=== PATIENT | male | born 1965 | race Caucasian/White ===

== ENCOUNTER 2022-06-21 11:08 | Inpatient (IN) | payer BC ==
[~2022-06-21] VITALS: Ht 185.4 cm; Wt 75.0 kg
[2022-06-21 17:54] LABS: BASOPHILS # (AUTO) 0.1 X10'3 (0-0.2); BASOPHILS % (AUTO) 0.8 % (0-1); EOSINOPHILS # (AUTO) 0.1 X10'3 (0-0.9); EOSINOPHILS % (AUTO) 0.6 % (0-6); HEMATOCRIT 44.4 % (42.0-52.0); HEMOGLOBIN 15.7 g/dl (14.0-17.9); LYMPHOCYTES # (AUTO) 0.6 X10'3 (1.1-4.8); LYMPHOCYTES % (AUTO) 6.9 % (21-51); MEAN CORPUSCULAR HEMOGLOBIN 34.1 PG (27.0-31.0); MEAN CORPUSCULAR HGB CONC 35.2 g/dL (33.0-36.5); MEAN CORPUSCULAR VOLUME 96.8 FL (78-98); MEAN PLATELET VOLUME 7.6 FL (7.4-10.4); MONOCYTES # (AUTO) 0.7 X10'3 (0-0.9); MONOCYTES % (AUTO) 8.6 % (2-12); NEUTROPHILS % (AUTO) 83.1 % (42-75); PLATELET COUNT 249 X10'3 (140-440); RED BLOOD COUNT 4.59 X10'6 (4.70-6.10); RED CELL DISTRIBUTION WIDTH 13.3 % (11.5-14.5); WHITE BLOOD COUNT 8.4 X10'3 (4.5-11.0)
[2022-06-21] MEDS ORDERED: iohexol 300mg/ml 100ml inj. ONE (17:57)
[2022-06-21 18:04] LABS: GLUCOSE 114 MG/DL (70-104); SODIUM 134 MMOL/L (135-145)
[2022-06-21 18:05] LABS: ALANINE AMINOTRANSFERASE 18 U/L (12-78); ALBUMIN 3.2 G/DL (3.4-5.0); ALBUMIN/GLOBULIN RATIO 0.9 (1.1-1.5); ALKALINE PHOSPHATASE 100 IU/L (46-116); ANION GAP 9 (8-16); ASPARTATE AMINO TRANSFERASE 21 U/L (10-37); BLOOD UREA NITROGEN 7 MG/DL (7-18); BUN/CREATININE RATIO 10.9 (5.4-32.0); CALCIUM 8.9 MG/DL (8.5-10.1); CHLORIDE 98 MMOL/L (99-107); CREATININE 0.64 MG/DL (0.60-1.10); POTASSIUM 3.8 MMOL/L (3.5-5.1); TOTAL CARBON DIOXIDE 27.3 MMOL/L (24-32); TOTAL PROTEIN 6.6 G/DL (6.4-8.2); eGFR > 90 ML/MIN
--- NOTE | 2022-06-21 19:23 | NUR ---
Patient given urinal and informed on need for UA.
[2022-06-21] MEDS ORDERED: vancomycin/NS 1 GM ADD-VANTAGE 250 ML IV ONE (19:50)
[2022-06-21] MEDS ORDERED: LIDOcaine 1% W/epiNEPHrine 1:100,000 20ml vial SQ ONE (20:15)
[2022-06-21] MEDS ORDERED: NO HOME MEDS (20:16)
[2022-06-21] MEDS ORDERED: LIDOCAINE 2% (20mg/ml) w/EPINEPHRINE 1:200,000-PF 10 ML inj. SQ ONE (20:30)
[2022-06-21] MEDS ORDERED: LIDOCAINE 2%/EPI 1:100,000 inj. Multi-dose 20 ML VIAL SQ ONE ×2 (20:35→20:45)
[2022-06-21] MEDS ORDERED: potassium Cl 40MEQ/1/2NS 520ml 520 ML IV PRN (20:40)
[2022-06-21] MEDS ORDERED: potassium Cl 20 mEq SR tablet PO PRN ×2 (20:40)
[2022-06-21] MEDS: normal saline 1000ml 1,000 ML IV SCH (20:40)
[2022-06-21] MEDS ORDERED: magnesium 4gm in 100ml NS 100 ML IV PRN (20:40)
[2022-06-21] MEDS ORDERED: acetaminophen 325mg tablet PO PRN (20:40)
[2022-06-21] MEDS ORDERED: magnesium hydroxide 30ml (MOM) UD suspension PO PRN (20:40)
[2022-06-21] MEDS ORDERED: mag hydrox/Alum hydrox/simeth 30ml oral suspension PO PRN (20:40)
[2022-06-21] MEDS ORDERED: magnesium Cl slow-release 64mg tablet PO PRN (20:40)
[2022-06-21] MEDS ORDERED: ondansetron/PF 4mg/2ml inj IV PRN (20:40)
[2022-06-21 21:26] LABS: CLARITY,URINE CLEAR (Clear); COLOR,URINE YELLOW (Yellow); GLUCOSE, URINE NEGATIVE (Neg); KETONES,URINE 15 mg/dl (Neg); LEUKOCYTE ESTERASE ,URINE NEGATIVE (Neg); NITRITES, URINE NEGATIVE (Neg); OCCULT BLOOD,URINE NEGATIVE (Neg); PROTEIN,URINE NEGATIVE (Neg)
[2022-06-21 21:30] LABS: UA COLLECTION TYPE CLN CATCH MIDSTREAM
--- NOTE | 2022-06-21 22:14 | NUR ---
Bedside procedure completed by SOBEIDA Barry. Packing in place.
[2022-06-22] VITALS (17 sets, daily range): BP systolic 102–146; BP diastolic 60–86
[2022-06-22] MEDS: piperacillin/tazo 3.375gm/50ml 50 ML IV SCH ×3 (01:18→15:47)
[2022-06-22] MEDS: clindamycin 300mg/D5W 50mL 50 ML IV SCH ×4 (03:10→20:31)
[2022-06-22 03:36] LABS: BASOPHILS # (AUTO) 0.1 X10'3 (0-0.2); BASOPHILS % (AUTO) 0.6 % (0-1); EOSINOPHILS # (AUTO) 0.1 X10'3 (0-0.9); EOSINOPHILS % (AUTO) 0.6 % (0-6); HEMATOCRIT 41.8 % (42.0-52.0); HEMOGLOBIN 14.4 g/dl (14.0-17.9); LYMPHOCYTES # (AUTO) 0.7 X10'3 (1.1-4.8); LYMPHOCYTES % (AUTO) 8.4 % (21-51); MEAN CORPUSCULAR HEMOGLOBIN 33.6 PG (27.0-31.0); MEAN CORPUSCULAR HGB CONC 34.5 g/dL (33.0-36.5); MEAN CORPUSCULAR VOLUME 97.4 FL (78-98); MONOCYTES % (AUTO) 11.2 % (2-12); NEUTROPHILS % (AUTO) 79.2 % (42-75); PLATELET COUNT 223 X10'3 (140-440); RED BLOOD COUNT 4.29 X10'6 (4.70-6.10); RED CELL DISTRIBUTION WIDTH 12.9 % (11.5-14.5); WHITE BLOOD COUNT 8.8 X10'3 (4.5-11.0)
[2022-06-22 03:50] LABS: ALANINE AMINOTRANSFERASE 17 U/L (12-78); ALBUMIN 2.7 G/DL (3.4-5.0); ALBUMIN/GLOBULIN RATIO 0.9 (1.1-1.5); ALKALINE PHOSPHATASE 87 IU/L (46-116); ANION GAP 5 (8-16); ASPARTATE AMINO TRANSFERASE 14 U/L (10-37); BILIRUBIN,TOTAL 1.6 MG/DL (0.1-1.0); BLOOD UREA NITROGEN 7 MG/DL (7-18); BUN/CREATININE RATIO 10.4 (5.4-32.0); CALCIUM 8.4 MG/DL (8.5-10.1); CHLORIDE 100 MMOL/L (99-107); CREATININE 0.67 MG/DL (0.60-1.10); GLUCOSE 125 MG/DL (70-104); MAGNESIUM 1.6 MG/DL (1.5-2.4); POTASSIUM 3.6 MMOL/L (3.5-5.1); SODIUM 133 MMOL/L (135-145); TOTAL CARBON DIOXIDE 28.3 MMOL/L (24-32); TOTAL PROTEIN 5.7 G/DL (6.4-8.2); eGFR > 90 ML/MIN
[2022-06-22] MEDS: normal saline 1000ml 1,000 ML IV SCH (06:40)
--- NOTE | 2022-06-22 07:13 | NUR ---
Received report from Savannah. Let her know that room is dirty and not ready for patient to be brought up. Let her know that a bottomer operator was seen in room and this RN will call to let her know when room is cleaned.
[2022-06-22] MEDS: docusate sod 100mg capsule PO SCH ×2 (07:22→20:21)
[2022-06-22] MEDS: heparin, porcine 5000 units/ml vial SQ SCH ×2 (07:23→20:21)
[2022-06-22] MEDS: HYDROcodone/acetaminophen 10/325mg tab PO PRN (07:23)
[2022-06-22] MEDS: K and/or MAG REPLACEMENT MC SCH ×2 (08:00→20:00)
--- NOTE | 2022-06-22 08:03 | NUR ---
Received patient to room 355B via gurmaxim accompanied by KNITTING MACHINE OPERATOR, Savannah. Spouse at bedside. Patient alert and oriented in no apparent acute distress. Patient denies any pain at this time. Oriented patient to room and call light. Call light placed within patient's reach. Bed low and locked.
[2022-06-22] MEDS ORDERED: ringers solution, lacted 1,000 ML IV SCH (12:30)
[2022-06-22] MEDS ORDERED: ondansetron/PF 4mg/2ml inj IV PRN (12:30)
[2022-06-22] MEDS ORDERED: proCHLORperazine 10 MG/2 ml inj IV PRN (12:30)
[2022-06-22] MEDS ORDERED: meperidine/PF 25mg/ml syringe IV PRN ×3 (12:30)
[2022-06-22] MEDS ORDERED: morphine 2 MG/ML inj. syringe IV PRN (12:30)
[2022-06-22] MEDS ORDERED: morphine 4 MG/ML inj SYRINge IV PRN (12:30)
[2022-06-22] MEDS ORDERED: midazolam 1 mg/ML 2ml injection ONE (12:33)
[2022-06-22] MEDS ORDERED: fentaNYL/PF 50MCG/1 ML 2ML syringe ONE (12:33)
[2022-06-22] MEDS ORDERED: propofol inj 20 ML IV ONE (12:35)
[2022-06-22] MEDS ORDERED: LIDOcaine 2% (20mg/ml) 5ml vial ONE (12:35)
--- NOTE | 2022-06-22 12:39 | NUR ---
Patient down to OR. Dr. Mccormick is aware patient received heparin SQ this morning in ER.
[2022-06-22] MEDS ORDERED: BUPIVAcaine 0.25% w/Epi /PF 30ml vial ONE (12:42)
[2022-06-22 12:43] LABS: APTT 33 SECONDS (22-32)
[2022-06-22] MEDS ORDERED: LIDOCAINE 2% w/EPI 1:100:000 30mL injection MDV**cath lab 1 only ONE (12:43)
[2022-06-22] MEDS ORDERED: dibucaine ointment 28gm RC ONE (12:44)
[2022-06-22] MEDS ORDERED: sevoflurane 250ml liquid IH ONE (13:11)
[2022-06-22] MEDS ORDERED: ketamine 50mg/5ml syringe ONE (13:23)
[2022-06-22] MEDS ORDERED: ondansetron/PF 4mg/2ml inj ONE (13:24)
[2022-06-22] MEDS ORDERED: dexamethasone sod phosphate 4mg/ml inj. ONE (13:24)
[2022-06-22] MEDS ORDERED: LIDOcaine 1% W/epiNEPHrine 1:100,000 20ml vial IJ ONE (13:35)
[2022-06-22] MEDS ORDERED: ePHEDrine 50MG/ML INJ. ONE (13:40)
--- NOTE | 2022-06-22 14:30 | NUR ---
PATIENT A&OX4, DENIES PAIN, V/S WNL, CSM INTACT, 20G PIV, JENNIFER DRAIN AND ABD PADS TO RECTAL AREA WITH NO ACTIVE DRAINAGE SEEN PATIENT TAKEN TO 355B WITH ALL BELONGINGS AND HOOKED UP TO MONITORS IN ROOM AND REPORT GIVEN TO RN WHO HAS TAKEN OVER PATIENT CARE.
--- NOTE | 2022-06-22 14:34 | NUR ---
Patient returned to room 355B alert and oriented and denies pain. Post op vitals initiated VSS.
--- NOTE | 2022-06-22 14:36 | NUR ---
PAGER ID: [phone] MESSAGE: 355B- Nino Morel- back from OR. ok to order a diet? - Mary Anne De Leon1
--- NOTE | 2022-06-22 14:42 | NUR ---
Dressing to buttocks with mesh undewear CDI.
--- NOTE | 2022-06-22 15:09 | NUR ---
PAGER ID: [phone] MESSAGE: 355B- Nino Morel- meredith to start a diet? return from OR I&D. thank you - Mary Anne [id number]
--- NOTE | 2022-06-22 19:03 | NUR ---
Patient in room NADIRA 355. I have received report from SUNIL North and had the opportunity to ask questions and assume patient care.
[2022-06-23] MEDS: clindamycin 300mg/D5W 50mL 50 ML IV SCH ×3 (02:37→13:06)
--- NOTE | 2022-06-23 06:44 | NUR ---
Problems reprioritized. Patient report given, questions answered & plan of care reviewed with SUNIL North.
--- NOTE | 2022-06-23 06:51 | NUR ---
Patient in room NADIRA 355. I have received report from SUNIL Muller and had the opportunity to ask questions and assume patient care.
[2022-06-23 06:57] LABS: ALANINE AMINOTRANSFERASE 15 U/L (12-78); ALBUMIN 2.3 G/DL (3.4-5.0); ALBUMIN/GLOBULIN RATIO 0.9 (1.1-1.5); ALKALINE PHOSPHATASE 73 IU/L (46-116); ANION GAP 6 (8-16); ASPARTATE AMINO TRANSFERASE 12 U/L (10-37); BILIRUBIN,TOTAL 0.5 MG/DL (0.1-1.0); BLOOD UREA NITROGEN 7 MG/DL (7-18); BUN/CREATININE RATIO 11.7 (5.4-32.0); CHLORIDE 99 MMOL/L (99-107); GLUCOSE 134 MG/DL (70-104); MAGNESIUM 1.6 MG/DL (1.5-2.4); POTASSIUM 3.9 MMOL/L (3.5-5.1); SODIUM 130 MMOL/L (135-145); TOTAL CARBON DIOXIDE 25.5 MMOL/L (24-32); eGFR > 90 ML/MIN
[2022-06-23 07:06] VITALS: BP 122/78
[2022-06-23 07:06] LABS: BASOPHILS % (AUTO) 0.4 % (0-1); EOSINOPHILS % (AUTO) 0.7 % (0-6); HEMATOCRIT 38.7 % (42.0-52.0); HEMOGLOBIN 13.2 g/dl (14.0-17.9); LYMPHOCYTES # (AUTO) 0.9 X10'3 (1.1-4.8); LYMPHOCYTES % (AUTO) 13.1 % (21-51); MEAN CORPUSCULAR HEMOGLOBIN 33.6 PG (27.0-31.0); MEAN PLATELET VOLUME 8.6 FL (7.4-10.4); MONOCYTES # (AUTO) 0.5 X10'3 (0-0.9); MONOCYTES % (AUTO) 7.3 % (2-12); NEUTROPHILS # (AUTO) 5.6 X10'3 (1.8-7.7); NEUTROPHILS % (AUTO) 78.5 % (42-75); PLATELET COUNT 214 X10'3 (140-440); RED BLOOD COUNT 3.91 X10'6 (4.70-6.10); RED CELL DISTRIBUTION WIDTH 13.2 % (11.5-14.5); WHITE BLOOD COUNT 7.1 X10'3 (4.5-11.0)
[2022-06-23] MEDS: HYDROcodone/acetaminophen 10/325mg tab PO PRN (07:13)
[2022-06-23] MEDS: docusate sod 100mg capsule PO SCH (07:13)
[2022-06-23] MEDS: heparin, porcine 5000 units/ml vial SQ SCH (07:14)
[2022-06-23] MEDS: normal saline 1000ml 1,000 ML IV SCH ×3 (07:19→12:40)
[2022-06-23] MEDS: K and/or MAG REPLACEMENT MC SCH (08:00)
[2022-06-23] MEDS: piperacillin/tazo 3.375gm/50ml 50 ML IV SCH ×3 (08:34→16:00)
[2022-06-23 12:14] VITALS: BP 99/60
[2022-06-23] MEDS ORDERED: CLIN-97 PO (17:10)
--- NOTE | 2022-06-23 17:22 | NUR ---
PAGER ID: [phone] MESSAGE: 355B- Nino Morel- pt requesting pain meds for dc. Patient received [place] 10/325mg 1 tab q4prn pain . - Mary Anne [id number]
[2022-06-23] MEDS ORDERED: HYDR-3965 PO (17:25)
--- NOTE | 2022-06-23 17:57 | NUR ---
Patient dc instructions and meds discussed by resource RN Obey. Went to speak to patient and asked if he had any questions and patient verbalized understanding of dc. Patient spoouse at bedside. Patient dc'd with all personal belongings escorted out in wheel chair accompanied by x1 staff and PCT.
== END 2022-06-23 17:52 | disposition home or self-care (01) | DRG 571 ==
LOC: ER 11:09 → ED HOLD 20:42 → EDBEDREQ 06-22 04:59 → SUR 3N 06-22 07:46
PROVIDERS: ADMIT Internal Medicine; ATTEND Internal Medicine
PROC: 0W9M0ZZ Drainage of Male Perineum, Open Approach (ICD-10-PCS; 2022-06-21)
PROC: 0JBB0ZZ Excision of Perineum Subcutaneous Tissue and Fascia, Open Approach (ICD-10-PCS; principal; 2022-06-22 13:11)
DX: L02.215 Cutaneous abscess of perineum (principal); K86.0 Alcohol-induced chronic pancreatitis; L03.317 Cellulitis of buttock; N49.2 Inflammatory disorders of scrotum
CPT/HCPCS: 99285; Z7506; 36415; 72193; 80053; 81003; 82948; 83605; 83735; 84145; 85025; 85610; 85730; 87040; 93005; A4618; A6209; A6253; A6266; A6449; A7000; G0378; J1100; J1644; J2250; J2405; J2543; J2704; J3010; J3370; J3490; J7030; J7120; Q9967; S0020

== ENCOUNTER 2023-07-12 14:09 | Inpatient (IN) | payer BC ==
[~2023-07-12] VITALS: Ht 182.9 cm; Wt 74.9 kg
[~2023-07-12 14:09] MED LIST: CLIN-97 PO; NO HOME MEDS
[2023-07-12 14:38] LABS: BILIRUBIN,URINE LARGE (Neg); CLARITY,URINE CLEAR (Clear); COLOR,URINE AMBER (Yellow); GLUCOSE, URINE 100 mg/dl (Neg); KETONES,URINE 15 mg/dl (Neg); LEUKOCYTE ESTERASE ,URINE NEGATIVE (Neg); OCCULT BLOOD,URINE NEGATIVE (Neg); PH,URINE 6.5 (4.8-8.0); PROTEIN,URINE 30 mg/dl (Neg)
[2023-07-12 14:47] LABS: NITRITES, URINE NEGATIVE (Neg)
[2023-07-12 14:48] LABS: UA COLLECTION TYPE CLN CATCH MIDSTREAM
[2023-07-12 14:53] LABS: MUCUS STRANDS MANY /LPF (Neg); SQUAMOUS EPITHELIAL CELL,UR FEW /LPF (FEW)
[2023-07-12 14:54] LABS: AMORPHOUS URATES 1+; BACTERIA,URINE FEW /HPF (Neg); CELLULAR CAST 0-4 /LPF (NEGATIVE); COARSE GRANULAR CAST 0-3 /LPF (NEGATIVE); RBC,URINE 0-2 /HPF (0-2); TRANSITIONAL EPI CELLS,URINE FEW /HPF
[2023-07-12 14:58] LABS: BASOPHILS # (AUTO) 0.1 X10'3 (0-0.2); BASOPHILS % (AUTO) 0.9 % (0-1); EOSINOPHILS # (AUTO) 0.1 X10'3 (0-0.9); EOSINOPHILS % (AUTO) 0.8 % (0-6); HEMOGLOBIN 10.6 g/dl (14.0-17.9); LYMPHOCYTES # (AUTO) 0.7 X10'3 (1.1-4.8); LYMPHOCYTES % (AUTO) 5.4 % (21-51); MEAN CORPUSCULAR HEMOGLOBIN 31.8 PG (27.0-31.0); MEAN CORPUSCULAR HGB CONC 34.3 g/dL (33.0-36.5); MEAN CORPUSCULAR VOLUME 92.9 FL (78-98); MEAN PLATELET VOLUME 7.4 FL (7.4-10.4); MONOCYTES # (AUTO) 1.5 X10'3 (0-0.9); MONOCYTES % (AUTO) 11.2 % (2-12); NEUTROPHILS # (AUTO) 10.8 X10'3 (1.8-7.7); NEUTROPHILS % (AUTO) 81.7 % (42-75); PLATELET COUNT 544 X10'3 (140-440); RED BLOOD COUNT 3.34 X10'6 (4.70-6.10); RED CELL DISTRIBUTION WIDTH 14.3 % (11.5-14.5); WHITE BLOOD COUNT 13.2 X10'3 (4.5-11.0)
[2023-07-12 15:20] LABS: ALANINE AMINOTRANSFERASE 68 U/L (12-78); ALKALINE PHOSPHATASE 666 IU/L (46-116); ANION GAP 8 (8-16); ASPARTATE AMINO TRANSFERASE 43 U/L (10-37); BILIRUBIN,TOTAL 4.4 MG/DL (0.1-1.0); BLOOD UREA NITROGEN 7 MG/DL (7-18); BUN/CREATININE RATIO 11.3 (10.0-20.0); CALCIUM 8.3 MG/DL (8.5-10.1); CHLORIDE 93 MMOL/L (99-107); CREATININE 0.62 MG/DL (0.60-1.10); GLUCOSE 110 MG/DL (70-104); LIPASE 31 U/L (16-77); POTASSIUM 3.7 MMOL/L (3.5-5.1); SODIUM 127 MMOL/L (135-145); TOTAL CARBON DIOXIDE 25.6 MMOL/L (24-32); eCRCL 138 ML/MIN; eGFR > 90 ML/MIN
[2023-07-12 15:25] LABS: ALBUMIN/GLOBULIN RATIO 0.5 (1.1-1.5); TOTAL PROTEIN 6.2 G/DL (6.4-8.2)
[2023-07-13] MEDS: morphine 2 MG/ML inj. syringe IV STA (06:24)
[2023-07-13] MEDS: normal saline 1000ml 1,000 ML IV ONE (06:25)
[2023-07-13] MEDS: ondansetron/PF 4mg/2ml inj IV ONE (06:25)
[2023-07-13] MEDS ORDERED: iohexol 300mg/ml 100ml inj. ONE (06:59)
[2023-07-13] MEDS: CefTRIAXone/D5W-Rocephin 1gm 50 ML IV STA (07:33)
[2023-07-13 08:14] LABS: APTT 30 SECONDS (22-32); INR 1.1 INR; PROTHROMBIN TIME 11.4 SECONDS (9.0-12.0)
[2023-07-13 08:20] LABS: FREE T4 (FREE THYROXINE) 0.83 NG/DL (0.73-1.40); THYROID STIMULATING HORMONE 2.93 ulU/ml (0.34-4.50)
[2023-07-13] MEDS ORDERED: magnesium Cl slow-release 64mg tablet PO PRN (08:45)
[2023-07-13] MEDS ORDERED: HYDROcodone/acetaminophen 10/325mg tab PO PRN (08:45)
[2023-07-13] MEDS ORDERED: morphine 2 MG/ML inj. syringe IV PRN ×2 (08:45)
[2023-07-13] MEDS ORDERED: potassium Cl 40MEQ/1/2NS 520ml 520 ML IV PRN (08:45)
[2023-07-13] MEDS ORDERED: HYDROcodone/acetaminophen 5mg/325mg tablet PO PRN (08:45)
[2023-07-13] MEDS ORDERED: acetaminophen 325mg tablet PO PRN ×2 (08:45)
[2023-07-13] MEDS ORDERED: magnesium 2GM in 50ml NS 50 ML IV PRN (08:45)
[2023-07-13] MEDS ORDERED: magnesium hydroxide 30ml (MOM) UD suspension PO PRN (08:45)
[2023-07-13] MEDS ORDERED: metoclopramide 5 mg/ml inj IV PRN (08:45)
[2023-07-13] MEDS ORDERED: ondansetron/PF 4mg/2ml inj IV PRN (08:45)
[2023-07-13] MEDS ORDERED: potassium Cl 20 mEq SR tablet PO PRN ×2 (08:45)
[2023-07-13] MEDS ORDERED: magnesium 4gm in 100ml NS 100 ML IV PRN (08:45)
[2023-07-13] MEDS ORDERED: mag hydrox/Alum hydrox/simeth 30ml oral suspension PO PRN (08:45)
[2023-07-13] MEDS: normal saline 1000ml 1,000 ML IV SCH (08:50)
[2023-07-13 09:21] LABS: ACETONE NEGATIVE (NEGATIVE)
[2023-07-13] MEDS: metroNIDAZOLE-Flagyl 500mg/NS 100 ML IV STA (11:21)
[2023-07-13] MEDS ORDERED: piperacillin/tazo 4.5gm/100ml 100 ML IV SCH (16:00)
[2023-07-13] MEDS: pantoprazole 40 MG vial IV ONE (19:55)
[2023-07-13] MEDS ORDERED: K and/or MAG REPLACEMENT MC SCH (20:00)
[2023-07-13] MEDS ORDERED: docusate sod 100mg capsule PO SCH (20:00)
[2023-07-13] MEDS: piperacillin/tazo 4.5gm/100ml 100 ML IV SCH (21:04)
[2023-07-13] MEDS: metroNIDAZOLE-Flagyl 500mg/NS 100 ML IV SCH (23:47)
[2023-07-14] MEDS: morphine 4 MG/ML inj SYRINge IV ONE (05:47)
[2023-07-14] MEDS: ondansetron/PF 4mg/2ml inj IV ONE (05:48)
[2023-07-14 06:53] LABS: BASOPHILS # (AUTO) 0.1 X10'3 (0-0.2); BASOPHILS % (AUTO) 0.8 % (0-1); EOSINOPHILS # (AUTO) 0.1 X10'3 (0-0.9); EOSINOPHILS % (AUTO) 0.8 % (0-6); HEMATOCRIT 28.7 % (42.0-52.0); LYMPHOCYTES # (AUTO) 0.8 X10'3 (1.1-4.8); LYMPHOCYTES % (AUTO) 7.1 % (21-51); MEAN CORPUSCULAR HEMOGLOBIN 32.1 PG (27.0-31.0); MEAN CORPUSCULAR HGB CONC 34.8 g/dL (33.0-36.5); MEAN CORPUSCULAR VOLUME 92.2 FL (78-98); MEAN PLATELET VOLUME 7.4 FL (7.4-10.4); MONOCYTES # (AUTO) 1.3 X10'3 (0-0.9); MONOCYTES % (AUTO) 11.1 % (2-12); NEUTROPHILS # (AUTO) 9.2 X10'3 (1.8-7.7); NEUTROPHILS % (AUTO) 80.2 % (42-75); PLATELET COUNT 499 X10'3 (140-440); RED BLOOD COUNT 3.11 X10'6 (4.70-6.10); RED CELL DISTRIBUTION WIDTH 13.7 % (11.5-14.5); WHITE BLOOD COUNT 11.5 X10'3 (4.5-11.0)
[2023-07-14 07:13] LABS: ALANINE AMINOTRANSFERASE 34 U/L (12-78); ALBUMIN 1.5 G/DL (3.4-5.0); ALBUMIN/GLOBULIN RATIO 0.4 (1.1-1.5); ALKALINE PHOSPHATASE 428 IU/L (46-116); ANION GAP 8 (8-16); ASPARTATE AMINO TRANSFERASE 16 U/L (10-37); BLOOD UREA NITROGEN 7 MG/DL (7-18); BUN/CREATININE RATIO 13.5 (10.0-20.0); CALCIUM 7.5 MG/DL (8.5-10.1); CHLORIDE 97 MMOL/L (99-107); CREATININE 0.52 MG/DL (0.60-1.10); GLUCOSE 111 MG/DL (70-104); MAGNESIUM 1.7 MG/DL (1.5-2.4); POTASSIUM 3.8 MMOL/L (3.5-5.1); SODIUM 129 MMOL/L (135-145); TOTAL PROTEIN 5.2 G/DL (6.4-8.2); eCRCL 164 ML/MIN; eGFR > 90 ML/MIN
[2023-07-14 07:50] VITALS: TEMP 98.5
[2023-07-14 12:12] LABS: ALANINE AMINOTRANSFERASE 37 U/L (12-78); ALBUMIN 1.7 G/DL (3.4-5.0); ALBUMIN/GLOBULIN RATIO 0.4 (1.1-1.5); ALKALINE PHOSPHATASE 438 IU/L (46-116); ANION GAP 4 (8-16); ASPARTATE AMINO TRANSFERASE 17 U/L (10-37); BILIRUBIN,TOTAL 2.1 MG/DL (0.1-1.0); BLOOD UREA NITROGEN 6 MG/DL (7-18); BUN/CREATININE RATIO 9.1 (10.0-20.0); CALCIUM 7.4 MG/DL (8.5-10.1); CHLORIDE 97 MMOL/L (99-107); CREATININE 0.66 MG/DL (0.60-1.10); GLUCOSE 128 MG/DL (70-104); SODIUM 131 MMOL/L (135-145); TOTAL CARBON DIOXIDE 29.9 MMOL/L (24-32); TOTAL PROTEIN 5.5 G/DL (6.4-8.2); eCRCL 129 ML/MIN; eGFR > 90 ML/MIN
[2023-07-14 12:48] VITALS: BP 106/66; PULSE 80; RESP 18; O2SAT 98
== END 2023-07-14 16:59 | disposition left against medical advice (07) | DRG 690 ==
LOC: ER 14:11 → ED HOLD 07-13 08:45
PROVIDERS: ADMIT Internal Medicine; ATTEND Internal Medicine
PROC: BW211ZZ Computerized Tomography (CT Scan) of Abdomen and Pelvis using Low Osmolar Contrast (ICD-10-PCS; principal; 2023-07-13)
DX: N39.0 Urinary tract infection, site not specified (principal); R18.8 Other ascites; K86.1 Other chronic pancreatitis; Z53.21 Procedure and treatment not carried out due to patient leaving prior to being seen by health care provider; F10.20 Alcohol dependence, uncomplicated
CPT/HCPCS: 36415; 74177; 76700; 80053; 81001; 82009; 83605; 83690; 83735; 84145; 84439; 84443; 85025; 85610; 85730; 87040; 87088; 96361; 96365; 96367; 96375; 99285; C9113; G0378; J0696; J2270; J2405; J2543; J3490; J7030; Q9967